=== PATIENT | male | born 1960 | race African-American/Black ===

== ENCOUNTER 2016-11-04 18:13 | Inpatient (IN) | payer MEDICARE ==
[~2016-11-04] VITALS: Ht 193 cm; Wt 79.4 kg
[~2016-11-04 18:13] MED LIST: CIPRO500 MG PO; CLEOCIN HCL300 MG PO; DILANTIN100 MG PO; K-DUR20 MEQ PO; LASIX20 MG PO; LEVAQUIN500 MG PO; ZESTRIL40 MG PO; ZITHROMAX 500M500 MG IV; ZITHROMAX250 MG PO
[2016-11-04 21:05] LABS: UDS - AMPHET NEGATIVE QUAL (NEGATIVE); UDS - BARB NEGATIVE QUAL (NEGATIVE); UDS - BENZO NEGATIVE QUAL (NEGATIVE); UDS - COCAINE NEGATIVE QUAL (NEGATIVE); UDS - METH NEGATIVE QUAL (NEGATIVE); UDS - OPIATE NEGATIVE QUAL (NEGATIVE); UDS - PCP NEGATIVE QUAL (NEGATIVE); UDS - THC POSITIVE QUAL (NEGATIVE)
[2016-11-04 22:20] LABS: BASOPHILS 0.1 % (0.0-2.0); EOSINOPHILS 0 % (0-7); HEMATOCRIT 43.4 % (42.0-54.0); HEMOGLOBIN 14.6 g/dL (13.5-17.5); IMMATURE GRANULOCYTES 0.3 % (0-5); LYMPHOCYTES 10.7 % (15-50); MCH 29.2 pg (26.0-34.0); MCHC 33.6 g/dL (31.0-37.0); MCV 86.8 fL (80.0-100.0); MONOCYTES 6.6 % (2-11); NEUTROPHILS 82.3 % (40-80); PLATELET COUNT 181 10x3/uL (130-400); RDW 14.2 % (11.5-14.5)
[2016-11-04 22:33] LABS: ALBUMIN 3.5 g/dL (3.4-5.0); ALKALINE PHOSPHATASE 97 U/L (46-116); ALT (SGPT) 19 U/L (10-68); BILIRUBIN - TOTAL 0.59 mg/dL (0.2-1.3); CALC OSMOLALITY 273 mosm/kg (275-300); CARBON DIOXIDE 25.4 mmol/L (21.0-32.0); CHLORIDE - SERUM 101 mmol/L (98-107); CREATININE - SERUM 0.9 mg/dL (0.6-1.3); GLUCOSE 103 mg/dL (74-106); PHENYTOIN (DILANTIN) 15.2 ug/mL (10.0-20.0); POTASSIUM - SERUM 3.9 mmol/L (3.5-5.1); PROTEIN - SERUM 7.2 g/dL (6.4-8.2); SODIUM 138 mmol/L (136-145); UREA NITROGEN 6 mg/dL (7-18); eGFR NON AFRICAN AMERICAN > 90 mL/min (90-120)
[2016-11-05] VITALS (18 sets, daily range): BP systolic 148–180; BP diastolic 90–129; Ht 193 cm; Wt 79.4 kg
--- NOTE | 2016-11-05 00:40 | NUR ---
PATIENT RECEIVED FROM ER VIA BED. PATIENT ABLE TO SLIDE FROM BED TO BED. IS ALERT AND ORIENTED BUT VERY TIRED. PIV IN RIGHT AC, SALINE LOCKED AT THIS TIME. NC ON @ 2L. NORMAL SINUS ON MONITOR. VSS. SEE ADMIT ASSESSMENT FOR MORE DETAILS.
--- NOTE | 2016-11-05 03:00 | NUR ---
REASSESSMENT COMPLETE, NO CHANGES FROM PREVIOUS ASSESSMENT. PATIENT ALERT AND ORIENTED X4. VSS.
--- NOTE | 2016-11-05 05:00 | NUR ---
PATIENT RESTING IN BED WITH EYES CLOSED. VSS.
[2016-11-05 05:10] LABS: ALBUMIN 3.9 g/dL (3.4-5.0); ALKALINE PHOSPHATASE 106 U/L (46-116); BILIRUBIN - TOTAL 0.68 mg/dL (0.2-1.3); CALC OSMOLALITY 275 mosm/kg (275-300); CALCIUM 8.5 mg/dL (8.5-10.1); CARBON DIOXIDE 24.9 mmol/L (21.0-32.0); CHLORIDE - SERUM 101 mmol/L (98-107); CREATININE - SERUM 0.7 mg/dL (0.6-1.3); GLUCOSE 93 mg/dL (74-106); POTASSIUM - SERUM 3.8 mmol/L (3.5-5.1); PROTEIN - SERUM 7.7 g/dL (6.4-8.2); SODIUM 139 mmol/L (136-145); UREA NITROGEN 6 mg/dL (7-18); eGFR NON AFRICAN AMERICAN > 90 mL/min (90-120)
[2016-11-05 05:11] LABS: ALT (SGPT) 25 U/L (10-68)
[2016-11-05 05:44] LABS: BASOPHILS 0.3 % (0.0-2.0); EOSINOPHILS 0 % (0-7); HEMATOCRIT 44.1 % (42.0-54.0); HEMOGLOBIN 15.3 g/dL (13.5-17.5); IMMATURE GRANULOCYTES 0.1 % (0-5); LYMPHOCYTES 19.8 % (15-50); MCH 29.8 pg (26.0-34.0); MCHC 34.7 g/dL (31.0-37.0); MCV 85.8 fL (80.0-100.0); MEAN PLATELET VOLUME 10.8 fL (7.4-10.4); NEUTROPHILS 66.8 % (40-80); PLATELET COUNT 184 10x3/uL (130-400); RBC 5.14 10x6/uL (4.20-6.10); RDW 14.1 % (11.5-14.5); WBC 7.2 10x3/uL (4.8-10.8)
--- NOTE | 2016-11-05 19:20 | NUR ---
REPORT RECVD. CARE ASSUMED. INITIAL ASSMNT COMPLETED. SEE FLOWSHEET FOR ALL FINDINGS. AWAKE, AOX4. PERRLA. DENIES NEEDS/DISCOMFORT. RESP UNLABORED. SPO2 98% ON O2 AT 2 LPM NC. LUNGS CTA, DIM IN BASES. SR ON THE MONITOR. AFEBRILE. ABD SOFT, BSA X4. F/C PATENT WITH CLR, YELLOW UOP. HOB UP. C/L IN REACH. BED ALARM ON. CONT CURRENT POC.
--- NOTE | 2016-11-05 21:00 | NUR ---
HS MED SGIVEN. NO VISITORS. DENIES NEEDS. HS SNACK PROVIDED. C/L IN REACH. CONT CURRENT POC.
--- NOTE | 2016-11-05 23:30 | NUR ---
RESTING NO DISTRESS. C/L IN REACH. VSS. CONT POC.
[2016-11-06 00:03] VITALS: BP 148/96
--- NOTE | 2016-11-06 00:05 | NUR ---
RESTING WITHNO DISTRESS. DENIES NEEDS. VSS. HOB UP. C/L IN REACH. BED ALARM ON. CONT CURRENT POC.
--- NOTE | 2016-11-06 03:00 | NUR ---
RESTING IN BED WITH EYES CLOSED. SR ON THE MONITOR. DENIES NEEDS. AFEBRILE. NO ACUTE CHANGES OR DISTRESS. HOB UP. C/L IN REACH. BED ALARM ON. CONT CURRENT POC.
[2016-11-06 03:11] VITALS: BP 155/100
--- NOTE | 2016-11-06 05:05 | NUR ---
RESTING WITH NO DISTRESS. VSS. DENIES NEEDS. HOB UP. C/L IN REACH. CONT CURRENT POC.
[2016-11-06 05:30] LABS: BASOPHILS 0.2 % (0.0-2.0); EOSINOPHILS 4.2 % (0-7); HEMATOCRIT 40.3 % (42.0-54.0); HEMOGLOBIN 13.7 g/dL (13.5-17.5); LYMPHOCYTES 36.4 % (15-50); MCH 29.6 pg (26.0-34.0); MEAN PLATELET VOLUME 11.3 fL (7.4-10.4); MONOCYTES 13.6 % (2-11); NEUTROPHILS 45.6 % (40-80); PLATELET COUNT 158 10x3/uL (130-400); RBC 4.63 10x6/uL (4.20-6.10); RDW 14.3 % (11.5-14.5); WBC 4.5 10x3/uL (4.8-10.8)
[2016-11-06 05:45] LABS: ALBUMIN 3.1 g/dL (3.4-5.0); ALKALINE PHOSPHATASE 78 U/L (46-116); BILIRUBIN - TOTAL 0.71 mg/dL (0.2-1.3); CALCIUM 8.6 mg/dL (8.5-10.1); CARBON DIOXIDE 26.6 mmol/L (21.0-32.0); CHLORIDE - SERUM 103 mmol/L (98-107); GLUCOSE 88 mg/dL (74-106); POTASSIUM - SERUM 3.7 mmol/L (3.5-5.1); PROTEIN - SERUM 6.6 g/dL (6.4-8.2); SODIUM 138 mmol/L (136-145)
[2016-11-06 05:46] LABS: ALT (SGPT) 18 U/L (10-68); CALC OSMOLALITY 274 mosm/kg (275-300); CREATININE - SERUM 0.9 mg/dL (0.6-1.3); UREA NITROGEN 12 mg/dL (7-18); eGFR NON AFRICAN AMERICAN > 90 mL/min (90-120)
[2016-11-06 07:00] VITALS: BP 140/103
[2016-11-06 11:00] VITALS: BP 137/107
[2016-11-06 15:00] VITALS: BP 146/109
[2016-11-07] VITALS: BP 146/79
[2016-11-07 04:00] VITALS: BP 149/97
[2016-11-07 07:59] VITALS: BP 139/104
--- NOTE | 2016-11-07 08:15 | NUR ---
DENIES NEEDS AT THIS TIME. CALL LIGHT IN REACH, WILL CONTINUE WITH PLAN OF CARE. ALERT AND ORIENTED. RESPIRATIONS EVEN AND NON LABORED.
--- NOTE | 2016-11-07 10:03 | NUR ---
SCHEDULED MEDICATIONS ADMINISTERED AT THIS TIME AND ASSESSMENT PERFORMED PER FLOWSHEET. SEIZURE PRECAUTIONS INITIATED PT IS NOW AGREEABLE. IV TO RIGHT AC REMAINS PATENT AND SALINE LOCKED. CALL LIGHT IN REACH, BED IN LOWEST POSITION WITH WHEELS LOCKED AND SRX2. WILL CONTINUE WITH PLAN OF CARE.
[2016-11-07] MEDS ORDERED: ZIAC 10-6.25 MG1 TAB PO (10:44)
--- NOTE | 2016-11-07 11:03 | NUR ---
Patient Name: RAFI RAIN Admission Status: ER Accout number: [id number] Admission Date: 11-04-2016 : 1960 Admission Diagnosis: Attending: FIDE Current LOS: 3 Anticipated DC Date: 11-07-2016 Planned Disposition: Home Primary Insurance: MEDICARE A & B Discharge Planning Comments: CM MET WITH PATIENT REGARDING D/C NEEDS AND PLANS. PATIENT STATED HE LIVES WITH HIS SISTER AND THERE ARE ABOUT 19 STEPS W/RAILS TO ENTER HOME AND NO STAIRS INSIDE. PATIENTS SISTER IN LAW (SHIRA) WILL DRIVE HIM HOME AT DISCHARGE. PATIENT STATED HE IS INDEPENDENT WITH HIS CARE AND HAS A WHEELCHAIR, AND WALKER AT HOME. PATIENT HAS NO PCP AND HE USES [facility] [address] FOR HIS PHARMACY. PATIENT REFUSED HOME HEALTH OR ANY OTHER NEEDS. CM WILL CONTINUE TO FOLLOW PATIENT WITH D/C NEEDS AND PLANS. PCP NONE [facility] [address]- [phone] SHIRA (SISTER IN [employer]) [phone] Integrity Analyst: Karely Shelton Is the patient Alert and Oriented? Yes 0 * How many steps to enter\exit or inside your home? 19 W/RAILS 0 * PCP NONE 0 * Pharmacy [facility] [address] 0 * Preadmission Environment Home with Family 0 * ADLs Independent 0 * Equipment Walker Wheelchair 0 * List name and contact numbers for known caregivers / representatives who currently or will assist patient after discharge: SHIRA ([employer] IN [employer]) [phone] 0 * Community resources currently utilized None 0 * Additional services required to return to the preadmission environment? Yes 0 * Can the patient safely return to the preadmission environment? Yes 0 * Has this patient been hospitalized within the prior 30 days at any hospital? No 0 Grand Total: 0
--- NOTE | 2016-11-07 11:36 | NUR ---
CM REASSESSMENT NOTE: PATIENT IS DISCHARGING HOME TODAY AND HIS SISTER IN LAW WILL BE DRIVING HIME HOME. PATIENT DENIED HOME HEALTH OR ANY OTHER NEEDS.
--- NOTE | 2016-11-07 12:10 | NUR ---
OXYGEN OFF AND SATURATIONS 96% ON ROOM AIR WITH ACTIVITY. PT TO D/C HOME.
[2016-11-07 12:45] VITALS: BP 152/168
--- NOTE | 2016-11-07 14:30 | NUR ---
D/C HOME AT THIS TIME. IV TO RIGHT AC D/C WITH CATH TIP INTACT. PT DENIES QUESTIONS OR CONCERNS R/T DISCHARGE INSTRUCTIONS.
--- NOTE | 2016-12-19 09:38 | DS ---
PATIENT:RAFI RAIN :56 MEDICAL RECORD: [id number] DISCHARGE SUMMARY ADMISSION DATE: 11/04/16 DISCHARGE DATE: 11/07/16 This is a discharge from the inpatient hospital, dated 11/07/2016. DISCHARGE DIAGNOSES: 1. Seizure disorder. 2. Hypertension. 3. Chronic noncompliance. 4. Hypokalemia. HOSPITAL COURSE: Full H&P is located elsewhere on the chart on this 56-year-old male, who was admitted through the ER with in status epilepticus. He had been out of his seizure medications for a few days. He was given Ativan and Haldol. He was restarted on his home medications, had IV fluids for hydration and electrolyte management per protocol. He was given Levaquin for antibiotic coverage. He was considered stable for discharge on 11/07/2016. DISCHARGE MEDICATIONS: As per discharge medication reconciliation. DISCHARGE DISPOSITION: The patient is discharged home. He will continue his current diet and level of activity. We will follow up with primary care in 7-10 days. He was scheduled with Dr. Mcdonald for an appointment on November 16. TRANSINT:[id number] Voice Confirmation ID: [id number] DOCUMENT ID: [id number] Dictated By: DEE DEE FRANKS I have interviewed/examined the above patient and agree with these documented findings. ISIDORO MCDONALD MD at 0938 at 0939 CC: [id number] DICTATION DATE: 12/17/16 1058 LIQUID LOADER: 12/17/16 1930 DIS IN 11/07/16 [place] [id number] [place] [id number]
== END 2016-11-07 14:30 | disposition home or self-care (01) | DRG 101 ==
LOC: D.ER 18:13 → D.ICU 23:44 → D.MS 11-06 19:30
PROVIDERS: Emergency Medicine; Physician Assistant Medical; ADMIT Family Medicine
DX: G40.901 Epilepsy, unspecified, not intractable, with status epilepticus (principal); Z91.14 Patient's other noncompliance with medication regimen; Z86.73 Personal history of transient ischemic attack (TIA), and cerebral infarction without residual deficits; I10 Essential (primary) hypertension

== ENCOUNTER 2016-11-25 17:26 | Emergency (ER) | payer MEDICARE ==
[2016-11-05 10:04] VITALS: BMI 21.3
[~2016-11-25 17:26] MED LIST changes: +ZIAC 10-6.25 MG1 TAB PO
[2016-11-25 19:50] LABS: APPEARANCE CLEAR (CLEAR); BILIRUBIN NEGATIVE (NEGATIVE); COLOR YELLOW (YELLOW); GLUCOSE NEGATIVE (NEGATIVE); KETONE SMALL mg/dL (NEGATIVE); LEUKOCYTE ESTERASE TRACE (NEGATIVE); NITRITE NEGATIVE (NEGATIVE); PROTEIN NEGATIVE (NEGATIVE); SPECIFIC GRAVITY 1.015 (1.005-1.020); UDS - AMPHET NEGATIVE QUAL (NEGATIVE); UDS - BARB NEGATIVE QUAL (NEGATIVE); UDS - BENZO NEGATIVE QUAL (NEGATIVE); UDS - COCAINE NEGATIVE QUAL (NEGATIVE); UDS - METH NEGATIVE QUAL (NEGATIVE); UDS - OPIATE NEGATIVE QUAL (NEGATIVE); UDS - PCP NEGATIVE QUAL (NEGATIVE); UDS - THC POSITIVE QUAL (NEGATIVE); UROBILINOGEN NORMAL (NORMAL)
[2016-11-25 19:51] LABS: BACTERIA NONE SEEN /hpf (NONE SEEN); EPITHELIAL CELLS 0-5 /hpf (0-5); RED CELLS - URINE 0-5 /hpf (0-5); WHITE CELLS - URINE 0-5 /hpf (0-5)
[2016-11-25 20:32] LABS: BASOPHILS 0.5 % (0.0-2.0); EOSINOPHILS 7.1 % (0-7); HEMATOCRIT 41.6 % (42.0-54.0); IMMATURE GRANULOCYTES 0.3 % (0-5); LYMPHOCYTES 48.4 % (15-50); MCH 29.6 pg (26.0-34.0); MCHC 33.7 g/dL (31.0-37.0); MCV 87.9 fL (80.0-100.0); MEAN PLATELET VOLUME 10.4 fL (7.4-10.4); MONOCYTES 11.6 % (2-11); NEUTROPHILS 32.1 % (40-80); PLATELET COUNT 181 10x3/uL (130-400); RBC 4.73 10x6/uL (4.20-6.10); RDW 14.2 % (11.5-14.5); WBC 3.8 10x3/uL (4.8-10.8)
[2016-11-25 20:46] LABS: ALBUMIN 3.6 g/dL (3.4-5.0); ALKALINE PHOSPHATASE 88 U/L (46-116); ALT (SGPT) 15 U/L (10-68); BILIRUBIN - TOTAL 0.44 mg/dL (0.2-1.3); CALC OSMOLALITY 276 mosm/kg (275-300); CALCIUM 8.9 mg/dL (8.5-10.1); CHLORIDE - SERUM 103 mmol/L (98-107); CREATININE - SERUM 0.8 mg/dL (0.6-1.3); GLUCOSE 78 mg/dL (74-106); POTASSIUM - SERUM 4.1 mmol/L (3.5-5.1); PROTEIN - SERUM 7.2 g/dL (6.4-8.2); SODIUM 140 mmol/L (136-145); UREA NITROGEN 10 mg/dL (7-18); eGFR NON AFRICAN AMERICAN > 90 mL/min (90-120)
[2016-11-25 20:54] LABS: PHENYTOIN (DILANTIN) 39.3 ug/mL (10.0-20.0)
== END 2016-11-25 21:28 | disposition home or self-care (01) ==
LOC: D.ER 17:26
PROVIDERS: Physician Assistant Medical
DX: T42.0X5A Adverse effect of hydantoin derivatives, initial encounter (principal); T40.7X5A Adverse effect of cannabis (derivatives), initial encounter; Y92.019 Unspecified place in single-family (private) house as the place of occurrence of the external cause; I10 Essential (primary) hypertension; G40.909 Epilepsy, unspecified, not intractable, without status epilepticus

== ENCOUNTER 2017-01-08 11:11 | Emergency (ER) | payer MEDICARE ==
[2016-11-05 10:04] VITALS: BMI 21.3
[2017-01-08 12:40] LABS: BASOPHILS 0.3 % (0-2); EOSINOPHILS 1.7 % (0-7); HEMATOCRIT 46.1 % (42.0-54.0); HEMOGLOBIN 15.7 g/dL (13.5-17.5); IMMATURE GRANULOCYTES 0.3 % (0-5); MCH 30.5 pg (26.0-34.0); MCHC 34.1 g/dL (31.0-37.0); MCV 89.5 fL (80.0-100.0); MEAN PLATELET VOLUME 11.2 fL (7.4-10.4); MONOCYTES 7.3 % (2-11); NEUTROPHILS 67.4 % (40-80); PLATELET COUNT 172 10x3/uL (130-400); RBC 5.15 10x6/uL (4.20-6.10); RDW 14.3 % (11.5-14.5); WBC 6.4 10x3/uL (4.8-10.8)
[2017-01-08 12:55] LABS: ALBUMIN 3.2 g/dL (3.4-5.0); ALKALINE PHOSPHATASE 73 U/L (46-116); ALT (SGPT) 21 U/L (10-68); BILIRUBIN - TOTAL 0.49 mg/dL (0.2-1.3); CALC OSMOLALITY 278 mosm/kg (275-300); CARBON DIOXIDE 21.1 mmol/L (21.0-32.0); CHLORIDE - SERUM 109 mmol/L (98-107); CREATININE - SERUM 0.9 mg/dL (0.6-1.3); GLUCOSE 71 mg/dL (74-106); PHENYTOIN (DILANTIN) 0.3 ug/mL (10.0-20.0); POTASSIUM - SERUM 5.2 mmol/L (3.5-5.1); SODIUM 141 mmol/L (136-145); UREA NITROGEN 12 mg/dL (7-18); eGFR NON AFRICAN AMERICAN > 90 mL/min (90-120)
[2017-01-08 14:01] LABS: APPEARANCE CLEAR (CLEAR); BILIRUBIN NEGATIVE (NEGATIVE); COLOR YELLOW (YELLOW); GLUCOSE NEGATIVE (NEGATIVE); KETONE NEGATIVE (NEGATIVE); LEUKOCYTE ESTERASE NEGATIVE (NEGATIVE); NITRITE NEGATIVE (NEGATIVE); PROTEIN NEGATIVE (NEGATIVE); UROBILINOGEN NORMAL (NORMAL)
[2017-01-08 14:08] LABS: UDS - AMPHET NEGATIVE QUAL (NEGATIVE); UDS - BARB NEGATIVE QUAL (NEGATIVE); UDS - BENZO NEGATIVE QUAL (NEGATIVE); UDS - COCAINE NEGATIVE QUAL (NEGATIVE); UDS - METH NEGATIVE QUAL (NEGATIVE); UDS - OPIATE NEGATIVE QUAL (NEGATIVE); UDS - PCP NEGATIVE QUAL (NEGATIVE); UDS - THC POSITIVE QUAL (NEGATIVE)
== END 2017-01-08 18:24 | disposition home or self-care (01) ==
LOC: D.ER 11:11
PROVIDERS: Emergency Medicine
DX: G40.909 Epilepsy, unspecified, not intractable, without status epilepticus (principal); E83.42 Hypomagnesemia; F19.10 Other psychoactive substance abuse, uncomplicated; E16.2 Hypoglycemia, unspecified; I10 Essential (primary) hypertension

== ENCOUNTER 2018-02-16 12:17 | Emergency (ER) | payer MEDICARE ==
[~2018-02-16] VITALS: Ht 193 cm; Wt 95.5 kg
[2018-02-16 12:19] VITALS: BP 163/115; Ht 193 cm; Wt 95.5 kg
[2018-02-16 13:00] LABS: BASOPHILS 0.1 % (0-2); EOSINOPHILS 0.3 % (0-7); HEMATOCRIT 39.2 % (42.0-54.0); HEMOGLOBIN 13.6 g/dL (13.5-17.5); IMMATURE GRANULOCYTES 0.1 % (0-5); LYMPHOCYTES 17.2 % (15-50); MCH 30.5 pg (26.0-34.0); MCHC 34.7 g/dL (31.0-37.0); MCV 87.9 fL (80.0-100.0); MEAN PLATELET VOLUME 9.9 fL (7.4-10.4); MONOCYTES 7.4 % (2-11); NEUTROPHILS 74.9 % (40-80); PLATELET COUNT 153 10x3/uL (130-400); RBC 4.46 10x6/uL (4.20-6.10); RDW 14.4 % (11.5-14.5); WBC 7.2 10x3/uL (4.8-10.8)
[2018-02-16 13:27] LABS: ALBUMIN 3.3 g/dL (3.4-5.0); ALKALINE PHOSPHATASE 78 U/L (46-116); ALT (SGPT) 24 U/L (10-68); BILIRUBIN - TOTAL 0.92 mg/dL (0.2-1.3); CALC OSMOLALITY 284 mosm/kg (275-300); CALCIUM 8.8 mg/dL (8.5-10.1); CHLORIDE - SERUM 108 mmol/L (98-107); CREATININE - SERUM 0.9 mg/dL (0.6-1.3); GLUCOSE 81 mg/dL (74-106); MAGNESIUM - SERUM 1.7 mg/dL (1.8-2.4); POTASSIUM - SERUM 3.9 mmol/L (3.5-5.1); PROTEIN - SERUM 6.8 g/dL (6.4-8.2); SODIUM 144 mmol/L (136-145); UREA NITROGEN 10 mg/dL (7-18); eGFR NON AFRICAN AMERICAN > 90 mL/min (90-120)
[2018-02-16 14:22] LABS: UDS - AMPHET NEGATIVE QUAL (NEGATIVE); UDS - BARB NEGATIVE QUAL (NEGATIVE); UDS - BENZO NEGATIVE QUAL (NEGATIVE); UDS - COCAINE NEGATIVE QUAL (NEGATIVE); UDS - OPIATE NEGATIVE QUAL (NEGATIVE); UDS - PCP NEGATIVE QUAL (NEGATIVE); UDS - THC POSITIVE QUAL (NEGATIVE)
[2018-02-16 14:48] LABS: APPEARANCE CLEAR (CLEAR); BILIRUBIN NEGATIVE (NEGATIVE); COLOR DK YELLOW (YELLOW); GLUCOSE NEGATIVE (NEGATIVE); KETONE NEGATIVE (NEGATIVE); NITRITE NEGATIVE (NEGATIVE); PROTEIN TRACE mg/dL (NEGATIVE); SPECIFIC GRAVITY 1.015 (1.005-1.020); UROBILINOGEN NORMAL (NORMAL)
[2018-02-16 14:49] LABS: RED CELLS - URINE 0-5 /hpf (0-5); WHITE CELLS - URINE 0-5 /hpf (0-5)
[2018-02-16 14:50] LABS: BACTERIA FEW /hpf (NONE SEEN); EPITHELIAL CELLS 0-5 /hpf (0-5)
== END 2018-02-16 15:52 | disposition left against medical advice (07) ==
LOC: D.ER 12:17
PROVIDERS: Family Medicine
DX: R56.9 Unspecified convulsions (principal); I10 Essential (primary) hypertension; Z87.820 Personal history of traumatic brain injury

== ENCOUNTER 2018-03-28 14:40 | Emergency (ER) | payer MEDICARE ==
[~2018-03-28] VITALS: Ht 193 cm; Wt 86.4 kg
[2018-03-28 14:43] VITALS: Ht 193 cm; Wt 86.4 kg
[2018-03-28] MEDS ORDERED: DILANTIN100 MG PO (17:24)
[2018-03-28 17:33] VITALS: BP 136/93
== END 2018-03-28 17:33 | disposition home or self-care (01) ==
LOC: D.ER 14:40
DX: Z91.14 Patient's other noncompliance with medication regimen (principal); G40.909 Epilepsy, unspecified, not intractable, without status epilepticus; I10 Essential (primary) hypertension; F17.200 Nicotine dependence, unspecified, uncomplicated

== ENCOUNTER 2018-12-07 07:59 | Emergency (ER) | payer MEDICARE ==
[~2018-12-07] VITALS: Ht 193 cm; Wt 100.0 kg
[2018-12-07 08:00] VITALS: Ht 193 cm; Wt 100.0 kg
[2018-12-07 08:34] LABS: HEMATOCRIT 29.1 % (42.0-54.0); LYMPHOCYTES 26.1 % (15-50); MCH 29.6 pg (26.0-34.0); MCHC 34.4 g/dL (31.0-37.0); MCV 86.1 fL (80.0-100.0); MEAN PLATELET VOLUME 9.1 fL (7.4-10.4); NEUTROPHILS 59.7 % (40-80); PLATELET COUNT 180 10x3/uL (130-400); RBC 3.38 10x6/uL (4.20-6.10); RDW 14.9 % (11.5-14.5); WBC 11.2 10x3/uL (4.8-10.8)
[2018-12-07 08:42] LABS: ALBUMIN 3.3 g/dL (3.4-5.0); ALKALINE PHOSPHATASE 85 U/L (46-116); ALT (SGPT) 42 U/L (10-68); BILIRUBIN - TOTAL 1.02 mg/dL (0.2-1.3); CALC OSMOLALITY 274 mosm/kg (275-300); CALCIUM 8.3 mg/dL (8.5-10.1); CARBON DIOXIDE 27.7 mmol/L (21.0-32.0); CHLORIDE - SERUM 99 mmol/L (98-107); CREATININE - SERUM 1.3 mg/dL (0.6-1.3); GLUCOSE 115 mg/dL (74-106); PHENYTOIN (DILANTIN) < 0.5 ug/mL (10.0-20.0); PROTEIN - SERUM 7.3 g/dL (6.4-8.2); SODIUM 136 mmol/L (136-145); UREA NITROGEN 19 mg/dL (7-18); eGFR NON AFRICAN AMERICAN 60 mL/min (90-120)
[2018-12-07 09:17] LABS: APPEARANCE CLEAR (CLEAR); BILIRUBIN NEGATIVE (NEGATIVE); COLOR YELLOW (YELLOW); GLUCOSE NEGATIVE (NEGATIVE); KETONE NEGATIVE (NEGATIVE); NITRITE NEGATIVE (NEGATIVE); PROTEIN NEGATIVE (NEGATIVE); UROBILINOGEN NORMAL (NORMAL)
[2018-12-07 09:28] LABS: UDS - AMPHET NEGATIVE QUAL (NEGATIVE); UDS - BARB NEGATIVE QUAL (NEGATIVE); UDS - BENZO NEGATIVE QUAL (NEGATIVE); UDS - COCAINE NEGATIVE QUAL (NEGATIVE); UDS - OPIATE NEGATIVE QUAL (NEGATIVE); UDS - PCP NEGATIVE QUAL (NEGATIVE); UDS - THC POSITIVE QUAL (NEGATIVE)
[2018-12-07] MEDS ORDERED: DILANTIN100 MG PO (09:35)
[2018-12-07 10:02] VITALS: BP 125/94
== END 2018-12-07 09:55 | disposition home or self-care (01) ==
LOC: D.ER 07:59
PROVIDERS: Family Medicine
DX: G40.909 Epilepsy, unspecified, not intractable, without status epilepticus (principal); D64.9 Anemia, unspecified; R00.0 Tachycardia, unspecified

== ENCOUNTER 2018-12-31 11:17 | Emergency (ER) | payer MEDICARE ==
[~2018-12-31] VITALS: Ht 193 cm; Wt 72.7 kg
[2018-12-31 11:18] VITALS: Ht 193 cm; Wt 72.7 kg
[2018-12-31 11:50] LABS: BASOPHILS 0.4 % (0-2); HEMATOCRIT 34.8 % (42.0-54.0); HEMOGLOBIN 11.8 g/dL (13.5-17.5); IMMATURE GRANULOCYTES 0.2 % (0-5); LYMPHOCYTES 32.8 % (15-50); MCH 30.6 pg (26.0-34.0); MCHC 33.9 g/dL (31.0-37.0); MCV 90.2 fL (80.0-100.0); MEAN PLATELET VOLUME 9.2 fL (7.4-10.4); MONOCYTES 7.6 % (2-11); PLATELET COUNT 207 10x3/uL (130-400); RBC 3.86 10x6/uL (4.20-6.10); RDW 15.7 % (11.5-14.5); WBC 4.6 10x3/uL (4.8-10.8)
[2018-12-31 12:04] LABS: ALBUMIN 3.1 g/dL (3.4-5.0); ALKALINE PHOSPHATASE 125 U/L (46-116); ALT (SGPT) 14 U/L (10-68); BILIRUBIN - TOTAL 0.47 mg/dL (0.2-1.3); CALC OSMOLALITY 269 mosm/kg (275-300); CALCIUM 8.3 mg/dL (8.5-10.1); CARBON DIOXIDE 24.7 mmol/L (21.0-32.0); CHLORIDE - SERUM 103 mmol/L (98-107); CREATININE - SERUM 0.8 mg/dL (0.6-1.3); GLUCOSE 81 mg/dL (74-106); MAGNESIUM - SERUM 1.6 mg/dL (1.8-2.4); PHENYTOIN (DILANTIN) 1.3 ug/mL (10.0-20.0); POTASSIUM - SERUM 3.4 mmol/L (3.5-5.1); PROTEIN - SERUM 7.1 g/dL (6.4-8.2); SODIUM 136 mmol/L (136-145); UREA NITROGEN 10 mg/dL (7-18); eGFR NON AFRICAN AMERICAN > 90 mL/min (90-120)
[2018-12-31 12:54] LABS: UDS - AMPHET NEGATIVE QUAL (NEGATIVE); UDS - BARB NEGATIVE QUAL (NEGATIVE); UDS - BENZO NEGATIVE QUAL (NEGATIVE); UDS - COCAINE NEGATIVE QUAL (NEGATIVE); UDS - OPIATE NEGATIVE QUAL (NEGATIVE); UDS - PCP NEGATIVE QUAL (NEGATIVE); UDS - THC POSITIVE QUAL (NEGATIVE)
[2018-12-31 13:10] LABS: APPEARANCE CLEAR (CLEAR); BILIRUBIN NEGATIVE (NEGATIVE); COLOR YELLOW (YELLOW); GLUCOSE NEGATIVE (NEGATIVE); KETONE NEGATIVE (NEGATIVE); NITRITE NEGATIVE (NEGATIVE); PROTEIN NEGATIVE (NEGATIVE); UROBILINOGEN NORMAL (NORMAL)
[2018-12-31] MEDS ORDERED: DILANTIN100 MG PO (13:44)
[2018-12-31 13:57] VITALS: BP 154/99
== END 2018-12-31 13:56 | disposition home or self-care (01) ==
LOC: D.ER 11:17
PROVIDERS: Family Medicine
DX: G40.909 Epilepsy, unspecified, not intractable, without status epilepticus (principal); F17.200 Nicotine dependence, unspecified, uncomplicated; I10 Essential (primary) hypertension

== ENCOUNTER 2020-05-24 12:55 | Emergency (ER) | payer MEDICARE ==
[~2020-05-24] VITALS: Ht 193 cm; Wt 97.7 kg
[2020-05-24 12:58] VITALS: Ht 193 cm; Wt 97.7 kg
[2020-05-24 13:12] LABS: HEMATOCRIT 45.1 % (42.0-54.0); HEMOGLOBIN 15.4 g/dL (13.5-17.5); MCH 30.6 pg (26.0-34.0); MCHC 34.1 g/dL (31.0-37.0); MCV 89.7 fL (80.0-100.0); MEAN PLATELET VOLUME 9.6 fL (7.4-10.4); PLATELET COUNT 165 10x3/uL (130-400); RBC 5.03 10x6/uL (4.20-6.10); RDW 14.2 % (11.5-14.5); WBC 5.8 10x3/uL (4.8-10.8)
[2020-05-24 13:33] LABS: CALC OSMOLALITY 266 mosm/kg (275-300); CARBON DIOXIDE 20.6 mmol/L (21.0-32.0); CHLORIDE - SERUM 102 mmol/L (98-107); CREATININE - SERUM 1.2 mg/dL (0.6-1.3); GLUCOSE 97 mg/dL (74-106); POTASSIUM - SERUM 4.2 mmol/L (3.5-5.1); SODIUM 134 mmol/L (136-145); UREA NITROGEN 10 mg/dL (7-18); eGFR NON AFRICAN AMERICAN 65 mL/min (90-120)
[2020-05-24 13:34] LABS: EOSINOPHILS 7 % (0-7); LYMPHOCYTES 55 % (15-50); MONOCYTES 1 % (2-11); NEUTROPHILS 37 % (40-80); PLATELET ESTIMATE NORMAL
[2020-05-24 13:37] LABS: ALBUMIN 3.5 g/dL (3.4-5.0); ALKALINE PHOSPHATASE 92 U/L (30-120); ALT (SGPT) 19 U/L (10-68); BILIRUBIN - TOTAL 0.69 mg/dL (0.2-1.3); MAGNESIUM - SERUM 1.9 mg/dL (1.8-2.4); PROTEIN - SERUM 7.8 g/dL (6.4-8.2)
[2020-05-24 13:38] LABS: PHENYTOIN (DILANTIN) 0.3 ug/mL (10.0-20.0); TROPONIN-I < 0.017 ng/mL (0.000-0.060)
[2020-05-24] MEDS ORDERED: KEPPRA500 MG PO (14:28)
[2020-05-24 15:11] LABS: BACTERIA FEW /HPF (NONE SEEN); BILIRUBIN NEGATIVE (NEGATIVE); EPITHELIAL CELLS 0-5 /hpf (0-5); KETONE NEGATIVE (NEGATIVE); NITRITE NEGATIVE (NEGATIVE); UROBILINOGEN NORMAL mg/dL (< 2); WHITE CELLS - URINE 0-5 HPF (0-1)
[2020-05-24 15:15] LABS: UDS - AMPHET NEGATIVE QUAL (NEGATIVE); UDS - BARB NEGATIVE QUAL (NEGATIVE); UDS - BENZO NEGATIVE QUAL (NEGATIVE); UDS - COCAINE NEGATIVE QUAL (NEGATIVE); UDS - OPIATE NEGATIVE QUAL (NEGATIVE); UDS - PCP NEGATIVE QUAL (NEGATIVE); UDS - THC POSITIVE QUAL (NEGATIVE)
[2020-05-24] MEDS ORDERED: KEFLEX500 MG PO (15:18)
[2020-05-24] MEDS ORDERED: DILANTIN100 MG PO (15:33)
[2020-05-24 21:19] VITALS: BP 136/95
== END 2020-05-24 21:19 | disposition home or self-care (01) ==
LOC: D.ER 12:55
PROVIDERS: Family Medicine
DX: R56.9 Unspecified convulsions (principal); E86.0 Dehydration; E87.1 Hypo-osmolality and hyponatremia; N39.0 Urinary tract infection, site not specified; I10 Essential (primary) hypertension

== ENCOUNTER 2020-06-28 16:17 | Emergency (ER) | payer MEDICARE ==
[~2020-06-28] VITALS: Ht 193 cm; Wt 90.9 kg
[~2020-06-28 16:17] MED LIST changes: +KEFLEX500 MG PO; +KEPPRA500 MG PO
[2020-06-28 16:18] VITALS: Ht 193 cm; Wt 90.9 kg
[2020-06-28 17:05] LABS: BASOPHILS 0.4 % (0-2); HEMATOCRIT 43.2 % (42.0-54.0); HEMOGLOBIN 14.9 g/dL (13.5-17.5); LYMPHOCYTES 30.5 % (15-50); MCH 30.9 pg (26.0-34.0); MCHC 34.5 g/dL (31.0-37.0); MCV 89.6 fL (80.0-100.0); MEAN PLATELET VOLUME 10.4 fL (7.4-10.4); MONOCYTES 6.4 % (2-11); NEUTROPHILS 56.7 % (40-80); PLATELET COUNT 153 10x3/uL (130-400); RBC 4.82 10x6/uL (4.20-6.10); RDW 14.6 % (11.5-14.5); WBC 4.5 10x3/uL (4.8-10.8)
[2020-06-28 17:22] LABS: CALC OSMOLALITY 279 mosm/kg (275-300); CARBON DIOXIDE 25.6 mmol/L (21.0-32.0); CHLORIDE - SERUM 105 mmol/L (98-107); CREATININE - SERUM 0.8 mg/dL (0.6-1.3); GLUCOSE 80 mg/dL (74-106); POTASSIUM - SERUM 4.2 mmol/L (3.5-5.1); SODIUM 141 mmol/L (136-145); UREA NITROGEN 12 mg/dL (7-18); eGFR NON AFRICAN AMERICAN > 90 mL/min (90-120)
[2020-06-28 17:26] LABS: ALBUMIN 3.1 g/dL (3.4-5.0); ALKALINE PHOSPHATASE 85 U/L (30-120); ALT (SGPT) 20 U/L (10-68); MAGNESIUM - SERUM 1.8 mg/dL (1.8-2.4); PROTEIN - SERUM 7.1 g/dL (6.4-8.2)
[2020-06-28 17:30] LABS: PHENYTOIN (DILANTIN) 0.3 ug/mL (10.0-20.0)
[2020-06-28 17:45] LABS: BILIRUBIN NEGATIVE (NEGATIVE); KETONE NEGATIVE (NEGATIVE); NITRITE NEGATIVE (NEGATIVE); UROBILINOGEN NORMAL mg/dL (< 2)
[2020-06-28 18:01] LABS: UDS - AMPHET NEGATIVE QUAL (NEGATIVE); UDS - BARB NEGATIVE QUAL (NEGATIVE); UDS - BENZO NEGATIVE QUAL (NEGATIVE); UDS - COCAINE NEGATIVE QUAL (NEGATIVE); UDS - OPIATE NEGATIVE QUAL (NEGATIVE); UDS - PCP NEGATIVE QUAL (NEGATIVE); UDS - THC POSITIVE QUAL (NEGATIVE)
[2020-06-28] MEDS ORDERED: TRIAMTERENE-HC1 EAC3 PO (18:12)
[2020-06-28] MEDS ORDERED: KEPPRA500 MG PO (18:12)
[2020-06-28 19:20] VITALS: BP 175/110
== END 2020-06-28 19:20 | disposition home or self-care (01) ==
LOC: D.ER 16:17
PROVIDERS: Family Medicine
DX: Z91.19 Patient's noncompliance with other medical treatment and regimen (principal); I10 Essential (primary) hypertension; R56.9 Unspecified convulsions; G40.909 Epilepsy, unspecified, not intractable, without status epilepticus; Z72.0 Tobacco use